=== PATIENT | male | born 1935 | race Caucasian/White ===

== ENCOUNTER 2022-06-29 20:32 | Inpatient (IN) | payer MEDICARE, BC ==
[~2022-06-29] VITALS: Ht 177.8 cm; Wt 79.4 kg
[2022-06-29] MEDS ORDERED: TELM40TA2 PO (21:03)
[2022-06-29] MEDS ORDERED: PANT40TA49 PO (21:03)
[2022-06-29] MEDS ORDERED: VITA-287 PO (21:03)
[2022-06-29] MEDS ORDERED: OLAN2.5T27 PO (21:03)
[2022-06-29] MEDS ORDERED: CHOL2000 PO (21:03)
[2022-06-29] MEDS ORDERED: ASCO-375 PO (21:03)
[2022-06-29] MEDS ORDERED: SENN-261 PO (21:03)
[2022-06-29] MEDS ORDERED: POLY17PO4 PO (21:03)
--- NOTE | 2022-06-29 22:27 | NUR ---
pt is in room 4a. he is calm cooperative pt will be transferred to mental health.
--- NOTE | 2022-06-29 22:55 | NUR ---
per DR. Lee informed that the pt will need a head ct then after that is clear the pt will be medically cleared for admission to mental health.
[2022-06-29] MEDS ORDERED: OLANZAPINE 10 MG VIAL IM ONE ×2 (23:40→23:45)
--- NOTE | 2022-06-30 00:05 | NUR ---
pt was taken for cat scan.
--- NOTE | 2022-06-30 00:16 | NUR ---
pt returned from cat scan.
--- NOTE | 2022-06-30 00:30 | NUR ---
pt medically cleared per dr. jones
--- NOTE | 2022-06-30 00:45 | NUR ---
report given to namita MG in mental health unit pt will go to 141 a.
--- NOTE | 2022-06-30 01:23 | NUR ---
pt was [facility] to [facility] room [facility]. SAURAV keita at bedside to receive the pt.
[2022-06-30] MEDS ORDERED: MAG HYDROX/AL HYDROX/SIMETH 30 ML LIQUID UDC PO PRN (01:45)
[2022-06-30] MEDS ORDERED: MAGNESIUM HYDROXIDE 30 ML LIQUID UDC PO PRN (01:45)
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
[2022-06-30 07:30] VITALS: BP 161/89
[2022-06-30] MEDS: VITAMIN B COMPLEX 1 TABLET PO SCH (09:00)
[2022-06-30] MEDS: PANTOPRAZOLE SODIUM 40 MG TABLET.DR PO SCH (09:00)
[2022-06-30] MEDS: SENNOSIDES 1 TABLET PO SCH ×2 (09:00→17:00)
[2022-06-30] MEDS: LOSARTAN POTASSIUM 50 MG TABLET PO SCH (09:00)
[2022-06-30] MEDS: MIRALAX 17 GM POWD.PACK PO SCH (09:00)
[2022-06-30] MEDS: ASCORBIC ACID 500 MG TABLET PO SCH (09:00)
[2022-06-30] MEDS: CHOLECALCIFEROL 1,000 UNIT TABLET PO SCH (09:00)
[2022-06-30] MEDS: OLANZAPINE ZYDIS 5 MG TAB.RAPDIS PO SCH ×2 (10:30→17:00)
[2022-06-30 16:00] VITALS: BP 137/95
--- NOTE | 2022-06-30 16:25 | NUR ---
RODY Initial Discharge Note: Pt currently resides at [address] [place] [address]. It is uncertain at this time if pt will be returning to this address. RODY will contact pt's daughter, Ashlee [phone] to gather further information and discuss pt's discharge plan. It is uncertain at this time if pt has a DPOA or conservator. RODY will continue to work with pt, family and MD to ensure a safe and proper discharge plan.
--- NOTE | 2022-06-30 16:28 | NUR ---
Firearms Report: Call Center Coordinator completed and submitted a [employer] firearms report for 5150 a danger to himself, a danger to others and grave disability certifications. A copy of report has been placed in patient chart.
--- NOTE | 2022-06-30 18:52 | NUR ---
Received patient sleeping in his room. A/O X 2 to person. Pt. is confused, restless, non compliant with medications. Pt. requires total care, unsteady gait. Fall and safety precautions implemented.
[2022-06-30 20:00] VITALS: BP 167/81
[2022-06-30] MEDS: MELATONIN 3 MG TABLET PO SCH (21:00)
[2022-06-30] MEDS: MIRTAZAPINE 15 MG TABLET PO SCH (21:00)
--- NOTE | 2022-06-30 22:00 | NUR ---
RECEIVED PATIENT IN THE HALLWAY SITTING IN A KIYA CHAIR NEAR THE NURSING STATION FOR SAFETY. HE IS NOTED A/O X 1. POOR HISTORIAN, HE IS NOTED WITH IMPAIRED INSIGHT AND JUDGMENT TO THE REASON FOR HIS ADMISSION TO MHU. HE STATED, "I WAS IN ONE PLACE NOW I AM IN ANOTHER PLACE. WHY AM I HEAR? I DIDN'T DO ANYTHING WRONG". PATIENT NOTED HAVING VISUAL AND AUDITORY HALLUCINATIONS. HE WAS OBSERVED REACHING AT THE SPACE AND TALKING TO HIMSELF. PATIENT REFUSED ALL HIS [facility] MEDICATIONS. HE IS SUSPICIOUS AND PARANOID. PATIENT IS HARD TO REDIRECT. HE REQUIRES TOTAL HELP WITH ADLs. PATIENT IS REASSURED FOR HIS SAFETY. SAFETY AND FALL PRECAUTION IN PLACE. V/S STABLE, HE IS IN NO DISTRESS. PATIENT WAS GIVEN PO FLUIDS AND SNACKS. WILL CONTINUE TO MONITOR.
[2022-07-01 08:16] VITALS: BP 153/55
[2022-07-01] MEDS: VITAMIN B COMPLEX 1 TABLET PO SCH (08:57)
[2022-07-01] MEDS: PANTOPRAZOLE SODIUM 40 MG TABLET.DR PO SCH (08:58)
[2022-07-01] MEDS: SENNOSIDES 1 TABLET PO SCH ×2 (08:58→16:17)
[2022-07-01] MEDS: LOSARTAN POTASSIUM 50 MG TABLET PO SCH (08:58)
[2022-07-01] MEDS: MIRALAX 17 GM POWD.PACK PO SCH (08:58)
[2022-07-01] MEDS: ASCORBIC ACID 500 MG TABLET PO SCH (08:59)
[2022-07-01] MEDS: CHOLECALCIFEROL 1,000 UNIT TABLET PO SCH (08:59)
[2022-07-01] MEDS: OLANZAPINE ZYDIS 5 MG TAB.RAPDIS PO SCH ×2 (08:59→16:18)
--- NOTE | 2022-07-01 09:58 | NUR ---
faxed [facility] to court follow up and spoke with Ashlyn from court.
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
[2022-07-01 15:30] VITALS: BP 152/47
[2022-07-01 19:57] VITALS: BP 130/58
[2022-07-01] MEDS: MELATONIN 3 MG TABLET PO SCH (20:31)
[2022-07-01] MEDS: MIRTAZAPINE 15 MG TABLET PO SCH (20:31)
[2022-07-02] MEDS: PANTOPRAZOLE SODIUM 40 MG TABLET.DR PO SCH (08:07)
[2022-07-02] MEDS: VITAMIN B COMPLEX 1 TABLET PO SCH (08:07)
[2022-07-02] MEDS: SENNOSIDES 1 TABLET PO SCH ×2 (08:07→16:20)
[2022-07-02] MEDS: MIRALAX 17 GM POWD.PACK PO SCH (08:07)
[2022-07-02] MEDS: LOSARTAN POTASSIUM 50 MG TABLET PO SCH (08:07)
[2022-07-02] MEDS: OLANZAPINE ZYDIS 5 MG TAB.RAPDIS PO SCH ×2 (08:08→16:20)
[2022-07-02] MEDS: CHOLECALCIFEROL 1,000 UNIT TABLET PO SCH (08:08)
[2022-07-02] MEDS: ASCORBIC ACID 500 MG TABLET PO SCH (08:08)
[2022-07-02 08:12] VITALS: BP 133/71
[2022-07-02 16:17] VITALS: BP 103/59
[2022-07-02 20:03] VITALS: BP 171/67
[2022-07-02] MEDS: MELATONIN 3 MG TABLET PO SCH (20:09)
[2022-07-02] MEDS: MIRTAZAPINE 15 MG TABLET PO SCH (20:10)
--- NOTE | 2022-07-03 04:09 | NUR ---
patient is confused and disorient total care to all ADLS ,continue refused all po medication unable to follow redirection ,constantly removed diaper and attempted to get out of bed ,bed alarm on Q 15 care rounding done will continue close monitoring .
--- NOTE | 2022-07-03 06:00 | NUR ---
patient constantly removed diaper agitated no compliant with all medication,slept 4.6 hrs.
[2022-07-03 08:02] VITALS: BP 162/67
[2022-07-03] MEDS: LOSARTAN POTASSIUM 50 MG TABLET PO SCH (08:58)
[2022-07-03] MEDS: MIRALAX 17 GM POWD.PACK PO SCH (08:58)
[2022-07-03] MEDS: VITAMIN B COMPLEX 1 TABLET PO SCH (08:58)
[2022-07-03] MEDS: PANTOPRAZOLE SODIUM 40 MG TABLET.DR PO SCH (08:59)
[2022-07-03] MEDS: ASCORBIC ACID 500 MG TABLET PO SCH (08:59)
[2022-07-03] MEDS: CHOLECALCIFEROL 1,000 UNIT TABLET PO SCH (08:59)
[2022-07-03] MEDS: SENNOSIDES 1 TABLET PO SCH ×2 (08:59→17:00)
[2022-07-03] MEDS: OLANZAPINE ZYDIS 5 MG TAB.RAPDIS PO SCH ×2 (09:00→17:00)
--- NOTE | 2022-07-03 09:00 | NUR ---
Patient blood pressure is 162/67, refuses Losartan 50 mg, and all scheduled medications this morning.
[2022-07-03] MEDS: CLONIDINE-TTS 1 PATCH TD SCH (13:24)
--- NOTE | 2022-07-03 13:28 | NUR ---
Patient blood pressure is 162/67. Component Assembler Supervisor ordered 0.1 mg Clonidine patch q7days for this patient. Patch was placed at 13:28 on his back.
--- NOTE | 2022-07-03 15:00 | NUR ---
Received patient sleeping in his room. A/O X 2 to person. Pt. is confused "Let me out of here. I need to take a walk" Poor safety, pt. is unaware of his limitations, thinks he can walk. Patient refuses medications. Patient requires maximal assistance, was showered today, but can't stand up. Pt. is encourage to vent feelings and emotions. Fall and safety precautions implemented.
[2022-07-03 16:17] VITALS: BP 142/62
[2022-07-03 20:00] VITALS: BP 145/69
[2022-07-03] MEDS: MIRTAZAPINE 15 MG TABLET PO SCH (21:00)
[2022-07-03] MEDS: MELATONIN 3 MG TABLET PO SCH (21:00)
--- NOTE | 2022-07-03 21:00 | NUR ---
RECEIVED PATIENT IN THE HALLWAY SITTING IN A KIYA CHAIR NEAR THE NURSING STATION FOR SAFETY. HE IS NOTED A/O X 1 PATIENT IS FORGETFUL. HE REQUIRES REALITY CHECKS. PT NOTED HAVING DELUSION OF PERSECUTION. PATIENT IS REFUSING ALL HIS MEDICATIONS. HE THINKS PEOPLE ARE TRYING TO POISON HIM. HE STATED, "OH NO!, DON'T GIVE ME ANY PILLS. I KNOW WHAT YOU ARE TRYING TO DO. I WILL TAKE MY MEDICATION WHEN I GET HOME". PT IS HARD TO REDIRECT. HE IS REASSURED FOR HIS SAFETY. SAFETY AND FALL PRECAUTION ARE IN PLACE. HE WAS GIVEN PO FLUIDS ANS SNACKS. V/S STABLE, PT IN NO DISTRESS. WILL CONTINUE TO MONITOR.
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
[2022-07-04 07:47] VITALS: BP 160/73
[2022-07-04] MEDS: ASCORBIC ACID 500 MG TABLET PO SCH (09:00)
[2022-07-04] MEDS: OLANZAPINE ZYDIS 5 MG TAB.RAPDIS PO SCH ×2 (09:00→16:40)
[2022-07-04] MEDS: CHOLECALCIFEROL 1,000 UNIT TABLET PO SCH (09:00)
[2022-07-04] MEDS: SENNOSIDES 1 TABLET PO SCH ×2 (09:00→16:39)
[2022-07-04] MEDS: LOSARTAN POTASSIUM 50 MG TABLET PO SCH (09:00)
[2022-07-04] MEDS: PANTOPRAZOLE SODIUM 40 MG TABLET.DR PO SCH (09:00)
[2022-07-04] MEDS: VITAMIN B COMPLEX 1 TABLET PO SCH (09:00)
[2022-07-04] MEDS: MIRALAX 17 GM POWD.PACK PO SCH (09:00)
[2022-07-04] MEDS: OLANZAPINE 10 MG VIAL IM PRN ×2 (10:25→16:40)
--- NOTE | 2022-07-04 11:43 | NUR ---
RODY Family Contact: RODY contacted pt's daughter and DPOA, Ashlee ([phone]) and discussed pt's discharge plan. Ashlee stated RODY can contact [facility] or [facility] for possible discharge locations. Ashlee is agreeable that pt may require a secured skilled facility. RODY stated this typewriter operator automatic will work closely with Dr. Fernandez and discuss updates with the Ashlee when she returns on the . Ashlee stated in the case of a dire emergency, hospital can contact Ashlee's son, Han ([phone]) to inform han of any dire news.
--- NOTE | 2022-07-04 16:03 | NUR ---
Received patient is confused and disorient total care to all ADLS ,continue refused all po medication unable to follow redirection ,patient' Riese hearing done by Dr. Fernandez and held .constantly removed diaper and attempted to get out of bed ,bed alarm on Q 15 care rounding done will continue close monitoring
[2022-07-04 16:05] VITALS: BP 148/74
[2022-07-04 20:05] VITALS: BP 146/72
--- NOTE | 2022-07-04 20:30 | NUR ---
RECEIVED PATIENT IN HIS ROOM IN BED. HE IS NOTED AWAKE A/O X 1 TO 2. HE IS FORGETFUL. PATIENT NOTED HYPERVERBAL WITH FLIGHT OF IDEAS. HE CONTINUE PARANOID. HE GETS EASILY IRRITABLE, HE IS GUARDED AND SUSPICIOUS. HIS INSIGHT AND JUDGMENT IS IMPAIRED. HE IS HARD TO REDIRECT. NEEDS CONSTANT REALITY CHECKS AND REASSURANCE. PATIENT IS REISE NOW. AFTER MULTIPLE REDIRECTION AND REASSURANCE, HE WAS ANA LILIA TO TAKE HIS QHS MEDICATIONS (REMERON AND MELATONIN). HE IS REASSURE FOR HIS SAFETY. SAFETY AND FALL PRECAUTIONS ARE IN PLACE. V/S STABLE. PATIENT IN NO DISTRESS. HE REFUSED SNACKS. WAS ABLE TO DRINK SOME FLUIDS.
[2022-07-04] MEDS: MIRTAZAPINE 15 MG TABLET PO SCH (21:53)
[2022-07-04] MEDS: MELATONIN 3 MG TABLET PO SCH (21:53)
[2022-07-05] MEDS: LOSARTAN POTASSIUM 50 MG TABLET PO SCH (09:00)
[2022-07-05] MEDS: CHOLECALCIFEROL 1,000 UNIT TABLET PO SCH (09:00)
[2022-07-05] MEDS: VITAMIN B COMPLEX 1 TABLET PO SCH (09:00)
[2022-07-05] MEDS: MIRALAX 17 GM POWD.PACK PO SCH (09:00)
[2022-07-05] MEDS: OLANZAPINE ZYDIS 5 MG TAB.RAPDIS PO SCH ×2 (09:00→17:27)
[2022-07-05] MEDS: ASCORBIC ACID 500 MG TABLET PO SCH (09:00)
[2022-07-05] MEDS: SENNOSIDES 1 TABLET PO SCH ×2 (09:00→17:00)
[2022-07-05] MEDS: PANTOPRAZOLE SODIUM 40 MG TABLET.DR PO SCH (09:00)
[2022-07-05] MEDS: OLANZAPINE 10 MG VIAL IM PRN (10:23)
[2022-07-05 10:31] VITALS: BP 128/46
[2022-07-05] MEDS: PROTEIN SUPPLEMENT (PROSTAT) 30 ML LIQUID PO SCH (14:45)
[2022-07-05] MEDS: GLUCERNA SHAKE 237 ML CAN PO SCH ×2 (14:45→17:30)
[2022-07-05 15:15] VITALS: BP 139/47
--- NOTE | 2022-07-05 15:39 | NUR ---
Received patient sleeping in his room. A/O X 2 to person. Pt. is confused, forgetful, disoriented, refusing PO medication, receiving back up for Zyprexa. Patient requires maximal assistance, was showered today, but can't stand up. Emotional support provided. Fall and safety precautions implemented.
[2022-07-05 20:07] VITALS: BP 126/51
[2022-07-05] MEDS: MELATONIN 3 MG TABLET PO SCH (20:19)
[2022-07-05] MEDS: MIRTAZAPINE 15 MG TABLET PO SCH (20:19)
--- NOTE | 2022-07-06 05:17 | NUR ---
Received patient in bed, awake, responsive to name. Patient A&0x1. Patient is forgetful, and confuse most of the times. Patient is resistive with nursing care. Patient also paranoid when attempt to touch him, patient stating "You do this every night,you try to hurt me". Re-assured patient, Patient is non-redirectable, patient constantly removing his gown and pants believing he can walk to go to bathroom. Patient slept intermittently during shift, episode of yelling when awake. Fall precaution and frequent monitoring observed for safety.
[2022-07-06 07:30] VITALS: BP 131/60
[2022-07-06] MEDS: ASCORBIC ACID 500 MG TABLET PO SCH (09:00)
[2022-07-06] MEDS: MIRALAX 17 GM POWD.PACK PO SCH (09:00)
[2022-07-06] MEDS: VITAMIN B COMPLEX 1 TABLET PO SCH (09:00)
[2022-07-06] MEDS: CHOLECALCIFEROL 1,000 UNIT TABLET PO SCH (09:00)
[2022-07-06] MEDS: SENNOSIDES 1 TABLET PO SCH ×3 (09:00→17:32)
[2022-07-06] MEDS: PANTOPRAZOLE SODIUM 40 MG TABLET.DR PO SCH (09:00)
[2022-07-06] MEDS: LOSARTAN POTASSIUM 50 MG TABLET PO SCH (09:00)
[2022-07-06] MEDS: OLANZAPINE ZYDIS 5 MG TAB.RAPDIS PO SCH ×2 (09:38→17:41)
[2022-07-06] MEDS: GLUCERNA SHAKE 237 ML CAN PO SCH ×3 (09:48→17:42)
[2022-07-06] MEDS: PROTEIN SUPPLEMENT (PROSTAT) 30 ML LIQUID PO SCH (09:49)
--- NOTE | 2022-07-06 15:42 | NUR ---
Received patient awake in his room. A/O X 1 -2 to person. Pt. is disoriented, disorganized, combative with nursing care, confused, withdrawn, cursing and yelling at times of frustration, accusatory. Pt. states "Why do you offer me those pills? Stop threatening me!" Total care. Reassurance given. Fall and safety precautions implemented.
[2022-07-06 16:00] VITALS: BP 133/41
[2022-07-06 20:19] VITALS: BP 127/51
[2022-07-06] MEDS: MIRTAZAPINE 15 MG TABLET PO SCH (20:34)
[2022-07-06] MEDS: MELATONIN 3 MG TABLET PO SCH (20:34)
--- NOTE | 2022-07-07 06:28 | NUR ---
Patient received in bed, sleeping, responsive only to name. Patient is confused and forgetful, needs constant re-directions. Patient is poor impulse control, poor judgment. Patient agrees to take PM medications. Patient slept well during shift. Patient given shower and non-resistive to nursing care at this time. fall precaution in place.
[2022-07-07 07:30] VITALS: BP 145/64
[2022-07-07] MEDS: ASCORBIC ACID 500 MG TABLET PO SCH (09:00)
[2022-07-07] MEDS: PANTOPRAZOLE SODIUM 40 MG TABLET.DR PO SCH (09:00)
[2022-07-07] MEDS: LOSARTAN POTASSIUM 50 MG TABLET PO SCH (09:00)
[2022-07-07] MEDS: CHOLECALCIFEROL 1,000 UNIT TABLET PO SCH (09:00)
[2022-07-07] MEDS: SENNOSIDES 1 TABLET PO SCH ×2 (09:00→17:00)
[2022-07-07] MEDS: MIRALAX 17 GM POWD.PACK PO SCH (09:00)
[2022-07-07] MEDS: VITAMIN B COMPLEX 1 TABLET PO SCH (09:00)
[2022-07-07] MEDS: OLANZAPINE ZYDIS 5 MG TAB.RAPDIS PO SCH ×2 (09:09→17:37)
[2022-07-07] MEDS: GLUCERNA SHAKE 237 ML CAN PO SCH ×3 (09:37→17:45)
[2022-07-07] MEDS: PROTEIN SUPPLEMENT (PROSTAT) 30 ML LIQUID PO SCH (09:38)
--- NOTE | 2022-07-07 10:00 | NUR ---
Admitted a case of 89 years old female from [facility]. Patient is on 5150 status. Patient arrived in a stretcher accompanied by RN. Initial report given by Sabrina MG. On admission patient was cooperative to physical assessment and vital signs. Skin assessment revealed no significant skin integrity breakdown. Vital signs were within normal limits. Upon face to face patient was alert, confused, disoriented. Pt. denies any suicidal and homicidal ideations nor any hallucinations or delusions. Patient refused to sign all admission documents. Patient was also offered brief orientation to unit rules and policies and given copy of patient's rights handbook. Patient belongings were accounted and contrabands removed. Psychiatrist Jim and Medical Physician Ross were informed and orders were carried out. Patient is currently free from pain or any discomfort. Emotional support provided. Fall and safety precautions implemented. Addendum: 07/07/22 at 1536 by CLARICE WANG RN Please disregard this note from another patient.
--- NOTE | 2022-07-07 10:47 | NUR ---
RODY Coordination of Care: SW contacted pt's daughter's referral, [facility] ([phone]) and this assembly instructions writer was placed on a long hold and was not able to be connected. SW previously contacted the memory care on and was also placed on a long hold and not able to connect.
[2022-07-07 16:00] VITALS: BP 132/67
--- NOTE | 2022-07-07 16:53 | NUR ---
Received patient sleeping in his room. A/O X 2 to person. Pt. is disorganized, forgetful, confused. Patient is compliant with medications. Total care. Active listening provided. Fall and safety precautions implemented.
[2022-07-07 20:00] VITALS: BP 134/67
[2022-07-07] MEDS: MELATONIN 3 MG TABLET PO SCH (20:49)
[2022-07-07] MEDS: MIRTAZAPINE 15 MG TABLET PO SCH (20:49)
[2022-07-07] MEDS: ZOLPIDEM 5 MG TABLET PO PRN (23:48)
--- NOTE | 2022-07-08 05:50 | NUR ---
Patient remains confuse, poor judgment and poor impulse control. needs constant re-direction. Unable to care for self. Needs maximum assistance to perform ADL's. Patient took meds but with difficulty. Patient talks to himself, unable to make meaningful conversation. Provided snacks and fluids. Slept total of 5.30 intermittently. Fall precaution in place. needs met and attended.
[2022-07-08 08:55] VITALS: BP 144/76
[2022-07-08] MEDS: OLANZAPINE ZYDIS 5 MG TAB.RAPDIS PO SCH ×3 (08:58→20:31)
[2022-07-08] MEDS: SENNOSIDES 1 TABLET PO SCH ×2 (09:00→17:00)
[2022-07-08] MEDS: VITAMIN B COMPLEX 1 TABLET PO SCH (09:00)
[2022-07-08] MEDS: LOSARTAN POTASSIUM 50 MG TABLET PO SCH (09:00)
[2022-07-08] MEDS: PANTOPRAZOLE SODIUM 40 MG TABLET.DR PO SCH (09:00)
[2022-07-08] MEDS: ASCORBIC ACID 500 MG TABLET PO SCH (09:00)
[2022-07-08] MEDS: CHOLECALCIFEROL 1,000 UNIT TABLET PO SCH (09:00)
[2022-07-08] MEDS: MIRALAX 17 GM POWD.PACK PO SCH (09:00)
[2022-07-08] MEDS: GLUCERNA SHAKE 237 ML CAN PO SCH ×3 (09:03→17:52)
[2022-07-08] MEDS: PROTEIN SUPPLEMENT (PROSTAT) 30 ML LIQUID PO SCH (09:03)
[2022-07-08 16:02] VITALS: BP 125/52
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
[2022-07-08 19:48] VITALS: BP 141/59
[2022-07-08] MEDS: MELATONIN 3 MG TABLET PO SCH (20:30)
[2022-07-08] MEDS: MIRTAZAPINE 15 MG TABLET PO SCH (20:31)
--- NOTE | 2022-07-08 20:45 | NUR ---
RECEIVED PATIENT IN THE HALLWAY SITTING IN A KIYA CHAIR. HE IS NOTED A/O X 1 HE IS HYPERVERBAL, DISORGANIZED SPEECH. PT IS HARD TO REDIRECT. REQUIRED CONSTANT REDIRECTION AND REALITY CHECKS. PATIENT IS REISE. AFTER MULTIPLE REDIRECTIONS HE WAS ABLE TO COMPLY WITH ZYPREXA QHS. HIS V/S ARE STABLE. HE IS IN NO DISTRESS. PATIENT WAS GIVEN PO FLUIDS AND SNACKS. HE IS REASSURED FOR HIS SAFETY. SAFETY AND FALL PRECAUTIONS ARE IN PLACE. WILL CONTINUE TO MONITOR.
[2022-07-09 07:30] VITALS: BP 115/52
[2022-07-09] MEDS: PROTEIN SUPPLEMENT (PROSTAT) 30 ML LIQUID PO SCH (08:00)
[2022-07-09] MEDS: PANTOPRAZOLE SODIUM 40 MG TABLET.DR PO SCH (08:28)
[2022-07-09] MEDS: OLANZAPINE ZYDIS 5 MG TAB.RAPDIS PO SCH ×3 (08:28→20:26)
[2022-07-09] MEDS: MIRALAX 17 GM POWD.PACK PO SCH (08:29)
[2022-07-09] MEDS: VITAMIN B COMPLEX 1 TABLET PO SCH (08:29)
[2022-07-09] MEDS: LOSARTAN POTASSIUM 50 MG TABLET PO SCH (08:29)
[2022-07-09] MEDS: CHOLECALCIFEROL 1,000 UNIT TABLET PO SCH (08:30)
[2022-07-09] MEDS: SENNOSIDES 1 TABLET PO SCH ×2 (08:30→16:40)
[2022-07-09] MEDS: ASCORBIC ACID 500 MG TABLET PO SCH (08:30)
[2022-07-09] MEDS: GLUCERNA SHAKE 237 ML CAN PO SCH ×3 (08:31→16:40)
[2022-07-09 16:00] VITALS: BP 105/69
--- NOTE | 2022-07-09 18:02 | NUR ---
Received patient is confused and disorient total care to all ADLS ,continue refused most of po medication but only took zyprexa , unable to follow redirection .constantly removed diaper and attempted to get out of bed ,bed alarm on Q 15 care rounding done will continue close monitoring
[2022-07-09 20:00] VITALS: BP 125/54
[2022-07-09] MEDS: MELATONIN 3 MG TABLET PO SCH (20:26)
--- NOTE | 2022-07-09 21:24 | NUR ---
GPS: Remains confused,disoriented and frequently requires re-assurance and re-direction from staff. Anxious,gets restless,attention seeking,paranoid and suspicious. Took bedtime meds. PO after a lot of persuasion from staff. Argumentative when being re-directed. Uncooperative/resistant during incontinence care at times. Fall precautions observed. Will continue to monitor. Discouraged from removing his diaper at night when in bed.
[2022-07-10 08:01] VITALS: BP 97/67
[2022-07-10] MEDS: PANTOPRAZOLE SODIUM 40 MG TABLET.DR PO SCH (09:00)
[2022-07-10] MEDS: SENNOSIDES 1 TABLET PO SCH ×2 (09:00→17:00)
[2022-07-10] MEDS: MIRALAX 17 GM POWD.PACK PO SCH (09:00)
[2022-07-10] MEDS: CHOLECALCIFEROL 1,000 UNIT TABLET PO SCH (09:00)
[2022-07-10] MEDS: VITAMIN B COMPLEX 1 TABLET PO SCH (09:00)
[2022-07-10] MEDS: LOSARTAN POTASSIUM 50 MG TABLET PO SCH (09:00)
[2022-07-10] MEDS: ASCORBIC ACID 500 MG TABLET PO SCH (09:00)
[2022-07-10] MEDS: PROTEIN SUPPLEMENT (PROSTAT) 30 ML LIQUID PO SCH (09:24)
[2022-07-10] MEDS: OLANZAPINE ZYDIS 5 MG TAB.RAPDIS PO SCH ×3 (09:25→20:36)
[2022-07-10] MEDS: GLUCERNA SHAKE 237 ML CAN PO SCH ×3 (09:25→17:42)
[2022-07-10 11:52] VITALS: BP 130/54
[2022-07-10] MEDS: CLONIDINE-TTS 1 PATCH TD SCH (13:34)
--- NOTE | 2022-07-10 15:20 | NUR ---
Pt. is confused, forgetful, selective with medications, suspicious about being poisonous in the hospital by staff, talkative, dramatic, needy. Requires maximal assistance with ADL. Reality orientation provided. Fall and safety precautions implemented.
[2022-07-10 16:09] VITALS: BP 99/48
[2022-07-10 20:27] VITALS: BP 121/55
[2022-07-10] MEDS: MELATONIN 3 MG TABLET PO SCH (20:36)
--- NOTE | 2022-07-10 21:17 | NUR ---
GPS: Remains confused,forgetful and tends to be repetitive. Re-assured frequently. Poor insight to present situation. Took bedtime meds.with little persuasion from staff. Fall precautions observed. Less resistant to care. Will continue to monitor.
[2022-07-10] MEDS: ZOLPIDEM 5 MG TABLET PO PRN (23:09)
[2022-07-11 00:38] LABS: *BILIRUBIN,URIN NEGATIVE (NEGATIVE); *BLOOD, URINE NEGATIVE (NEGATIVE); *CLARITY,URINE CLEAR (CLEAR); *COLOR,URINE YELLOW (YELLOW); *KETONES,URINE NEGATIVE (NEGATIVE); LEUKOCYTE ESTERASE ,URINE NEGATIVE (NEGATIVE); NITRITE, URINE NEGATIVE (NEGATIVE); UGLUCOSE NEGATIVE (NEGATIVE)
[2022-07-11 07:43] VITALS: BP 140/54
[2022-07-11] MEDS: OLANZAPINE ZYDIS 5 MG TAB.RAPDIS PO SCH ×3 (08:46→20:40)
[2022-07-11] MEDS: LOSARTAN POTASSIUM 50 MG TABLET PO SCH (08:47)
[2022-07-11] MEDS: CHOLECALCIFEROL 1,000 UNIT TABLET PO SCH (09:00)
[2022-07-11] MEDS: PANTOPRAZOLE SODIUM 40 MG TABLET.DR PO SCH (09:00)
[2022-07-11] MEDS: MIRALAX 17 GM POWD.PACK PO SCH (09:00)
[2022-07-11] MEDS: ASCORBIC ACID 500 MG TABLET PO SCH (09:00)
[2022-07-11] MEDS: SENNOSIDES 1 TABLET PO SCH ×2 (09:00→16:09)
[2022-07-11] MEDS: VITAMIN B COMPLEX 1 TABLET PO SCH (09:00)
[2022-07-11] MEDS: GLUCERNA SHAKE 237 ML CAN PO SCH ×3 (10:07→16:44)
[2022-07-11] MEDS: PROTEIN SUPPLEMENT (PROSTAT) 30 ML LIQUID PO SCH (10:07)
--- NOTE | 2022-07-11 10:52 | NUR ---
RODY Discharge Update: RODY received a call back from Radha in admissions at [facility] ([phone]) who stated they have bed availability for male patients right now. Radha stated they require a 602 form completely filled out prior to a decision for the patients acceptance. RODY confirmed they will received it prior to discharge. Radha stated they will come evaluate the pt once 602 form is received. RODY stated pt's discharge date is 07/14/22.
--- NOTE | 2022-07-11 14:33 | NUR ---
patient is confused and disorient total care to all ADLS ,continue refused most of po medication but only took zyprexa , unable to follow redirection .get patient up to ceci-chair ,bed alarm on Q 15 care rounding done will continue close monitoring
[2022-07-11 16:17] VITALS: BP 139/58
[2022-07-11 20:00] VITALS: BP 135/58
[2022-07-11] MEDS: MELATONIN 3 MG TABLET PO SCH (20:40)
--- NOTE | 2022-07-11 21:04 | NUR ---
GPS: Remains confused and forgetful. Reality re-orientation provided. Took bedtime meds. No increased agitation noted. Allows care from staff with little resistance. Fall precautions observed.
[2022-07-12 07:30] VITALS: BP 113/55
[2022-07-12] MEDS: OLANZAPINE ZYDIS 5 MG TAB.RAPDIS PO SCH ×3 (08:54→20:31)
[2022-07-12] MEDS: GLUCERNA SHAKE 237 ML CAN PO SCH ×3 (08:57→17:31)
[2022-07-12] MEDS: VITAMIN B COMPLEX 1 TABLET PO SCH (08:58)
[2022-07-12] MEDS: LOSARTAN POTASSIUM 50 MG TABLET PO SCH (08:58)
[2022-07-12] MEDS: MIRALAX 17 GM POWD.PACK PO SCH (08:58)
[2022-07-12] MEDS: PROTEIN SUPPLEMENT (PROSTAT) 30 ML LIQUID PO SCH (08:58)
[2022-07-12] MEDS: SENNOSIDES 1 TABLET PO SCH ×2 (08:59→17:00)
[2022-07-12] MEDS: PANTOPRAZOLE SODIUM 40 MG TABLET.DR PO SCH (08:59)
[2022-07-12] MEDS: CHOLECALCIFEROL 1,000 UNIT TABLET PO SCH (08:59)
[2022-07-12] MEDS: ASCORBIC ACID 500 MG TABLET PO SCH (08:59)
[2022-07-12 15:10] VITALS: BP 114/46
--- NOTE | 2022-07-12 15:23 | NUR ---
Patient is forgetful, disorganized, confused, compliant with Zyprexa PO, cooperative with nursing care. Pt. is restless and anxious at times. Requires total care. Pt. is encourage to vent feelings and emotions. Fall and safety precautions implemented.
[2022-07-12 19:24] VITALS: BP 114/46
[2022-07-12] MEDS: MELATONIN 3 MG TABLET PO SCH (20:31)
[2022-07-12] MEDS: LORAZEPAM 1 MG TABLET PO PRN (20:54)
[2022-07-12] MEDS: ACETAMINOPHEN 325 MG TABLET PO PRN (23:47)
[2022-07-12] MEDS: ZOLPIDEM 5 MG TABLET PO PRN (23:47)
[2022-07-13] MEDS: ZOLPIDEM 5 MG TABLET PO PRN (00:02)
[2022-07-13] MEDS: ACETAMINOPHEN 325 MG TABLET PO PRN (00:02)
--- NOTE | 2022-07-13 04:29 | NUR ---
This patient is confused and irritated. Encouragement is needed for the patient to take PO medications. All during the night , this patient would yell and disturb his roommates. A few times, he took off his diaper and threw it on the floor. Multiple attempts at reorientating this patient have been unsuccessful, and only makes him mad. Patient is argumentative and demanding, plus paranoid. Safety Stratiges are in place and continuing to monitor for behavior escalation.
[2022-07-13 07:30] VITALS: BP 143/68
[2022-07-13] MEDS: OLANZAPINE ZYDIS 5 MG TAB.RAPDIS PO SCH ×3 (08:40→20:32)
[2022-07-13] MEDS: VITAMIN B COMPLEX 1 TABLET PO SCH (08:45)
[2022-07-13] MEDS: GLUCERNA SHAKE 237 ML CAN PO SCH ×3 (08:45→17:34)
[2022-07-13] MEDS: PROTEIN SUPPLEMENT (PROSTAT) 30 ML LIQUID PO SCH (08:45)
[2022-07-13] MEDS: LOSARTAN POTASSIUM 50 MG TABLET PO SCH (08:46)
[2022-07-13] MEDS: MIRALAX 17 GM POWD.PACK PO SCH (08:46)
[2022-07-13] MEDS: ASCORBIC ACID 500 MG TABLET PO SCH (08:46)
[2022-07-13] MEDS: SENNOSIDES 1 TABLET PO SCH ×2 (08:46→17:00)
[2022-07-13] MEDS: PANTOPRAZOLE SODIUM 40 MG TABLET.DR PO SCH (08:46)
[2022-07-13] MEDS: CHOLECALCIFEROL 1,000 UNIT TABLET PO SCH (08:47)
--- NOTE | 2022-07-13 11:27 | NUR ---
RODY Discharge Update: RODY received a call back from Larissa in admissions at [facility] ([phone]) who stated that they cannot accept the pt at this time due to pt requiring a 2 person assist. They stated they can only accommodate the pt with one person assist. Larissa stated she has spoken with Ashlee as well. RODY will contact Ashlee and discuss discharge update.
--- NOTE | 2022-07-13 11:33 | NUR ---
RODY Family Contact: RODY contacted pt's daughter and DPOA, Ashlee ([phone]) and discussed pt's discharge plan for tomorrow. RODY stated to Ashlee that [facility] did not respond and Larissa from [facility] stated to RODY that pt cannot be accepted due to pt requiring 2 person assist. RODY and Ashlee discussed pt's current status per report from rehab for pt's needs regarding continuation of care. Ashlee is aware pt needs rehab in a rehabilitation facility. RODY and Ashlee are working on a placement for pt.
--- NOTE | 2022-07-13 15:24 | NUR ---
RODY Family Contact: RODY contacted pt's daughter and DPOA, Ashlee ([phone]) and discussed pt's current discharge update. RODY stated that pt has a discharge plan for tomorrow as discussed previously and answered Ashlee's concerns regarding pt's non ambulatory status per rehab report. Ashlee is aware and understanding after discussing with this SW and nurse Ashlyn. Ashlee stated pt has a pending referral to [facility] in [place] ([phone]) and that an employee named Niki is coming to evaluate the pt today. Ashlee asked RODY to speak to them regarding additional questions. RODY restated that pt has an accepting facility to [facility] if pt is not accepted to [place]. Ashlee refused pt to transfer to [facility]. Ashlee was grateful for the staff's help through this process. RODY stated this pattern chart writer will inform Ashlee of updates from [place].
--- NOTE | 2022-07-13 15:34 | NUR ---
Patient is very confused, forgetful, disorganized, disoriented. A/O X 1 to person. Patient requires total assistance with ADL. Active listening and reality orientation provided. Fall and safety precautions implemented.
[2022-07-13 16:00] VITALS: BP 136/60
[2022-07-13 19:58] VITALS: BP 101/56
[2022-07-13] MEDS: MELATONIN 3 MG TABLET PO SCH (20:32)
--- NOTE | 2022-07-14 06:39 | NUR ---
GPS: Pt.slept 4.30 last night. Refused sleeping pill when offered numerous times. Remains confused,forgetful,and argumentative when being re-directed. Incontinence care rendered with little resistance. Fall precautions observed. Bed alarm on for safety.
[2022-07-14 07:50] VITALS: BP 114/50
[2022-07-14] MEDS: LOSARTAN POTASSIUM 50 MG TABLET PO SCH (09:00)
[2022-07-14] MEDS: MIRALAX 17 GM POWD.PACK PO SCH (09:00)
[2022-07-14] MEDS: SENNOSIDES 1 TABLET PO SCH ×2 (09:00→17:00)
[2022-07-14] MEDS: CHOLECALCIFEROL 1,000 UNIT TABLET PO SCH (09:00)
[2022-07-14] MEDS: PANTOPRAZOLE SODIUM 40 MG TABLET.DR PO SCH (09:00)
[2022-07-14] MEDS: VITAMIN B COMPLEX 1 TABLET PO SCH (09:00)
[2022-07-14] MEDS: ASCORBIC ACID 500 MG TABLET PO SCH (09:00)
[2022-07-14] MEDS: OLANZAPINE ZYDIS 5 MG TAB.RAPDIS PO SCH ×3 (09:02→20:17)
[2022-07-14] MEDS: PROTEIN SUPPLEMENT (PROSTAT) 30 ML LIQUID PO SCH (09:03)
[2022-07-14] MEDS: GLUCERNA SHAKE 237 ML CAN PO SCH ×3 (09:03→17:31)
--- NOTE | 2022-07-14 09:12 | NUR ---
RODY Discharge Update: RODY faxed a referral packet of pt's clinicals to [facility] in [place] [phone] per pt's daughter, Ashlee's request [phone] and spoke with Ping in admissions. Cameron scheduled a call at 11AM with this SW to evaluate the pt via phone prior to acceptance. RODY stated this show card writer has the 602 form and clinicals faxed to the facility. Cameron stated they have additional forms for SW to sign as well. Cameron stated they haven spoken to the daughter as well and will contact this SW regarding acceptance once clinicals are reviewed.
--- NOTE | 2022-07-14 11:18 | NUR ---
SW Referrals: RODY faxed the remainder of paperwork given to this SW by [facility] in [place] [phone] to Ping. RODY is awaiting acceptance result.
--- NOTE | 2022-07-14 15:52 | NUR ---
Patient is confused, forgetful, disorganized, disoriented. Patient is compliant with medications with prompts. Patient is reised and have Zyprexa IM back up. Patient requires total care. A/O X 1 to person. Reassurance given. Fall and safety precautions implemented.
[2022-07-14 16:53] VITALS: BP 138/55
[2022-07-14 20:01] VITALS: BP 118/56
[2022-07-14] MEDS: MELATONIN 3 MG TABLET PO SCH (20:17)
[2022-07-14] MEDS: LORAZEPAM 1 MG TABLET PO PRN (22:01)
--- NOTE | 2022-07-15 01:00 | NUR ---
GPS: Pt. has his eyes closed although with episodes of yelling for no reason. Refused to be repositioned. Diaper remains dry so far. Denies pain when asked. Sleeping pill was offered but refused despite explanation of risks vs benefits. Argues with staff when being re-directed. Quiet environment provided to facilitate sleep. Will continue to monitor.
[2022-07-15 07:30] VITALS: BP 129/57
[2022-07-15] MEDS: PROTEIN SUPPLEMENT (PROSTAT) 30 ML LIQUID PO SCH (08:00)
[2022-07-15] MEDS: GLUCERNA SHAKE 237 ML CAN PO SCH ×2 (08:00→10:09)
[2022-07-15 08:48] VITALS: BP 129/57
[2022-07-15] MEDS: LOSARTAN POTASSIUM 50 MG TABLET PO SCH (08:48)
[2022-07-15] MEDS: OLANZAPINE ZYDIS 5 MG TAB.RAPDIS PO SCH (08:50)
[2022-07-15] MEDS: ASCORBIC ACID 500 MG TABLET PO SCH (09:00)
[2022-07-15] MEDS: SENNOSIDES 1 TABLET PO SCH (09:00)
[2022-07-15] MEDS: MIRALAX 17 GM POWD.PACK PO SCH (09:00)
[2022-07-15] MEDS: PANTOPRAZOLE SODIUM 40 MG TABLET.DR PO SCH (09:00)
[2022-07-15] MEDS: CHOLECALCIFEROL 1,000 UNIT TABLET PO SCH (09:00)
[2022-07-15] MEDS: VITAMIN B COMPLEX 1 TABLET PO SCH (09:00)
--- NOTE | 2022-07-15 09:03 | NUR ---
SW Family Contact: SW contacted pt's daughter and DICKAshlee ([phone]) and left a voicemail for a call back to discuss transportation for the pt as [facility] left a voicemail for the SW stating they can no longer provide transportation as they do not have a steam train driver.
--- NOTE | 2022-07-15 11:57 | NUR ---
RODY Discharge Note: Pt will be discharged to [facility] in [place] located at [address] [place] [phone] ([phone]) via [facility] non-medical transportation at 1PM. RODY spoke with admin coordinator, Kailyn Dias and Shanti at the facility who state they are ready to accept the patient today. Pt is aware and agreeable with discharge plan. Pts DPOA and daughter, Ashlee ([phone]) is aware and agreeable with the discharge plan. Pt is alert and oriented x2, is unable to plan for self-care at this time. However, pt is willing to accept care at SNF. Pt denies any suicidal or homicidal ideation. Pt will follow-up at the facility with [facility] Tender, Dr. Mcbride. Per Dr. Rae Kruger and the facility will refer the pt to a Psychiatrist to continue care. Pt presents with calm mood and congruent affect. PHARMACY: [facility] ([phone]) [address] [facility].
--- NOTE | 2022-07-15 13:30 | NUR ---
Discharged to [facility] non-medical transportation at 1PM. Pt is alert and oriented x2, is unable to plan for self-care at this time. pt is willing to accept care at SNF. Pt denies any suicidal or homicidal ideation. Pt will follow-up at the facility with Molder Apprentice, Dr. Mcbride. Per Dr. Rae Kruger and the facility will refer the pt to a Psychiatrist to continue care. Pt presents with calm mood , all personal belonging returned to patient.
== END 2022-07-15 13:30 | DRG 885 ==
LOC: ER 20:32 → GPS 06-30 00:35
PROVIDERS: ADMIT Psychiatry & Neurology Psychiatry
DX: F29 Unspecified psychosis not due to a substance or known physiological condition (principal); F01.51 Vascular dementia, unspecified severity, with behavioral disturbance; I10 Essential (primary) hypertension; K21.9 Gastro-esophageal reflux disease without esophagitis; K59.00 Constipation, unspecified; Z20.822 Contact with and (suspected) exposure to COVID-19
CPT/HCPCS: 36415; 70450; 71045; 87086; 97161; A4663; J2358